=== PATIENT | male | born 1970 | race Caucasian/White ===

== ENCOUNTER → 2023-06-08 08:08 | Outpatient (REF) | payer OTHER, SELFPAY | LOC: RAD 08:08 | PROVIDERS: ATTENDING PHYSICIAN Internal Medicine Rheumatology; FAMILY PHYSICIAN Student in an Organized Health Care Education/Training Program | DX: M54.50 Low back pain, unspecified (principal); M25.561 Pain in right knee; R76.8 Other specified abnormal immunological findings in serum | CPT/HCPCS: 72110; 72202; 73030; 73523; 73560; 73565 ==

== ENCOUNTER 2023-07-07 15:23 | Emergency (ER) | payer OTHER, SELFPAY ==
[2023-07-07 15:30] VITALS: BP 140/100
--- NOTE | 2023-07-07 16:50 | ED.MUSCINJ ---
HPI-Injury
General
Chief Complaint: Musculo-Skeletal Complaint
Source: patient
Exam Limitations: none
Time Seen by Provider: 07/07/23 15:57
Nursing documentation reviewed up to this point in time: agreed with
Travel History
Have you had any contact with someone who has COVID-19?: No
Do you have any symptoms of coronavirus? Fever > 100 degrees, chills, cough, shortness of breath, sore throat, loss of taste or smell, muscle aches, or headache?: No
History of Present Illness-Injury
Initial Injury comments:
52-year-old male with no significant past medical history states he has had left hip pain for the past 4 days ever since feeling a sudden pain while bowling 4 days ago. After he felt the sudden pain he was able to finish bowling that night but has
had increasing pain in the outer aspect of his left hip and buttock area since. He states his left leg feels numb to the toes. He has been ambulating well. He takes naproxen with some relief.
Past History
Past History
ED Past Medical History: None
Social History
Personal:
Living: with family
Employment: Employed
Review of Systems
Review of Systems
Allergies reviewed?: Yes
All Other Systems: ROS reviewed and negative except as documented in HPI and ROS
Musculoskeletal: Reports other (Pain about the left hip. Walking with a limp.)
Skin: Reports no symptoms
Neurological: Denies weakness
Phy Exam
Physical Exam
Physical Exam:
PHYSICAL EXAMINATION:
General: no apparent distress, not acutely ill
Neuro: alert and oriented.
Psychiatric: well kept. interactive and cooperative
Musculoskeletal: Unable to reproduce pain with palpation about the entire right hip, groin, buttock areas. Full range of motion with no elicitation of the pain. When he walks he walks with a slight limp due to pain. Distal
neurovascular intact. Well-perfused. Moves with ease
Skin: Warm, pink.
Injury Course
Orders/Labs/Results
Orders:
Orders
07/07/23 15:59
Hip, Left 2-3 Views [CR Hip - LT w/wo Pel 2-3 Vw*] Urgent
Comment:
Reason For Exam: felt sudden pain bowling 4 days ago, pain since
Include a pelvis x-ray?: Yes
07/07/23 17:26
Dexamethasone [Decadron] 10 mg PO NOW STA
MDM/Problems Addressed
Differential Diagnosis Includes:
Muscle strain, ligament strain, avulsion fracture
MDM/Problems Addressed:
52-year-old male with no significant past medical history states he has had left hip pain for the past 4 days ever since feeling a sudden pain while bowling 4 days ago. After he felt the sudden pain he was able to finish bowling that night but has
had increasing pain in the outer aspect of his left hip and buttock area since. He states his left leg feels numb to the toes. He has been ambulating well. He takes naproxen with some relief.
X-ray left hip: Initially read by this examiner, normal
Patient ambulated to and from x-ray with a mild limp.
Upon discharge, patient ambulated out with mild limp.
*Critical Care Note
Total Time (30-74mins, 75-104mins- exclusive of procedures): Not Applicable
ED Attending Note
-
Portions of this chart may have been created with voice recognition software.� Occasional wrong word or��sound alike� substitutions may have occurred due to the inherent limitations of voice recognition software.
Discharge Plan
Departure
Patient Disposition: Home (Routine Discharge)
Date of Disposition: 07/07/23
Time of Disposition: 17:23
Patient with high blood pressure during this ER visit?: Yes
Condition: Good
Discharge Problem:
Acute pain of left hip
Instructions: Muscle Strain (DC), Hip Pain (DC), Bursitis ED
Prescriptions:
New
prednisone 20 mg tablet
40 mg PO DAILY Qty: 8 0RF
Referrals:
Bing Holman PA-C [Family Provider] -
Bill Russo MD [Active] - As needed
Activity Restrictions/Additional Instructions:
As we discussed, I sent a prescription to your pharmacy for prednisone. Started tomorrow you were given a dose of steroid here today.
See the orthopedic doctor if you are not much improved within the next week.
Avoid strenuous activity until the hip feels better.
This is most likely a muscle strain or bursitis
Interventions
Interventions:
*Risk Screen - Suicide Last Done: 07/07/23 16:06
*General Assessment Last Done: 07/07/23 16:06
*Neglect/Abuse Screening Last Done: 07/07/23 16:06
*Nursing Disposition Last Done: 07/07/23 17:44
ED-Musculoskeletal Assessment Last Done: 07/07/23 16:06
Discharge Date and Time
Discharge Date/Time: 07/07/23 17:55
[2023-07-07] MEDS: DECADRON 10 MG PO (17:35)
== END 2023-07-07 17:55 | disposition home or self-care (01) ==
LOC: EMR 15:23
PROVIDERS: EMERGENCY PHYSICIAN Emergency Medicine; FAMILY PHYSICIAN Student in an Organized Health Care Education/Training Program
DX: M25.552 Pain in left hip (principal)
CPT/HCPCS: 99283; 73502

== ENCOUNTER → 2023-07-15 12:50 | Outpatient (REF) | payer OTHER, SELFPAY | LOC: MRI 3T 12:50 | PROVIDERS: ATTENDING PHYSICIAN Internal Medicine Rheumatology; FAMILY PHYSICIAN Student in an Organized Health Care Education/Training Program | DX: E55.9 Vitamin D deficiency, unspecified (principal); G89.29 Other chronic pain; M25.561 Pain in right knee; M25.562 Pain in left knee; M47.819 Spondylosis without myelopathy or radiculopathy, site unspecified; M54.50 Low back pain, unspecified; R76.8 Other specified abnormal immunological findings in serum | CPT/HCPCS: 72195 ==

== ENCOUNTER → 2023-07-19 14:41 | Outpatient (REF) | payer OTHER, SELFPAY | LOC: PAVMRI 14:41 | PROVIDERS: ATTENDING PHYSICIAN Physician Assistant Medical; FAMILY PHYSICIAN Student in an Organized Health Care Education/Training Program | DX: M54.16 Radiculopathy, lumbar region (principal); M51.26 Other intervertebral disc displacement, lumbar region | CPT/HCPCS: 72148 ==

== ENCOUNTER 2023-09-23 06:30 | Outpatient (RCR) | payer OTHER, SELFPAY | END 2023-09-23 23:59 | disposition home or self-care (01) | LOC: RPT 06:30 | PROVIDERS: ATTENDING PHYSICIAN Physician Assistant Medical; FAMILY PHYSICIAN Student in an Organized Health Care Education/Training Program | DX: M51.26 Other intervertebral disc displacement, lumbar region (principal) | CPT/HCPCS: 97110; 97162 ==

== ENCOUNTER 2023-10-07 17:59 | Outpatient (RCR) | payer OTHER, SELFPAY | END 2023-10-07 23:59 | disposition home or self-care (01) | LOC: RPT 17:59 | PROVIDERS: ATTENDING PHYSICIAN Physician Assistant Medical; FAMILY PHYSICIAN Student in an Organized Health Care Education/Training Program | DX: Z47.89 Encounter for other orthopedic aftercare (principal); M51.26 Other intervertebral disc displacement, lumbar region; M54.16 Radiculopathy, lumbar region; Z73.6 Limitation of activities due to disability; M62.81 Muscle weakness (generalized) | CPT/HCPCS: 97110 ==

== ENCOUNTER 2023-11-04 14:13 | Outpatient (RCR) | payer OTHER, SELFPAY | END 2023-11-04 23:59 | disposition home or self-care (01) | LOC: RPT 14:13 | PROVIDERS: ATTENDING PHYSICIAN Physician Assistant Medical; FAMILY PHYSICIAN Student in an Organized Health Care Education/Training Program | DX: M51.16 Intervertebral disc disorders with radiculopathy, lumbar region (principal) | CPT/HCPCS: 97110 ==

== ENCOUNTER → 2023-11-14 15:40 | Outpatient (REF) | payer OTHER, SELFPAY | LOC: RAD 15:40 | PROVIDERS: ATTENDING PHYSICIAN Student in an Organized Health Care Education/Training Program | DX: R05.9 Cough, unspecified (principal) | CPT/HCPCS: 71046 ==